=== PATIENT | female | born 1955 | race Caucasian/White ===

== ENCOUNTER → 2017-10-25 | Outpatient (CLI) | payer BC ==
[~2017-10-25] VITALS: Ht 175.3 cm; Wt 93.6 kg
[~2017-10-25] MED LIST: ESTRACE1 M1 PO; PROAIR HFA0.09 MG/AC IH
[2017-10-25 17:07] LABS: EOS # 0.2 (0.04-0.40); EOS % 3.2 % (1.0-5.0); HEMOGLOBIN 14.4 g/dL (12.5-16.0); LYMPH# 1.7 (1.50-4.00); MEAN CELL VOLUME 73 fl (78-100); MEAN CORPUSCULAR HGB CONC 32 g/dL (33-37); MEAN PLATELET VOLUME 10.3 fl (7.4-10.4); MONO # 0.6 (0.20-0.80); NEU # 3.5 (1.40-6.50); PLATELET COUNT 264 K/mm3 (130-400); RED BLOOD COUNT 6.18 M/mm3 (4.10-5.30); RED CELL DISTRIBUTION WIDTH 15.8 % (11.5-14.5)
[2017-10-25 17:18] VITALS: BP 148/84
[2017-10-25 17:22] LABS: MEAN CORPUSCULAR HEMOGLOBIN 23 pg (27-31)
[2017-10-25 17:32] LABS: ALBUMIN 4.5 g/dL (3.5-5.0); BUN/CREATININE RATIO 23.7 (6.0-26.0); CALCIUM 9.4 mg/dL (8.4-10.2); POTASSIUM 3.8 mmol/L (3.6-5.0); TOTAL BILIRUBIN 0.7 mg/dL (0.2-1.3); TOTAL PROTEIN 7.6 g/dL (6.3-8.2)
[2017-10-25 17:47] LABS: URINE APPEARANCE CLEAR; URINE BILIRUBIN NEGATIVE (NEGATIVE); URINE BLOOD NEGATIVE (NEGATIVE); URINE COLOR YELLOW; URINE GLUCOSE NEGATIVE (NEGATIVE); URINE KETONE NEGATIVE (NEGATIVE); URINE LEUKOCYTE ESTERASE NEGATIVE (NEGATIVE); URINE NITRATE NEGATIVE (NEGATIVE); URINE PROTEIN(semi-quant) NEGATIVE (NEGATIVE); URINE UROBILINOGEN NORMAL (NORMAL); URINE WBC 0-1 /hpf (0-3)
== END ==
LOC: AMSURD 16:51
PROVIDERS: Internal Medicine
DX: Z01.818 Encounter for other preprocedural examination (principal); Z01.812 Encounter for preprocedural laboratory examination

== ENCOUNTER → 2018-07-24 | Outpatient (CLI) | payer BC ==
[2017-10-25 17:18] VITALS: BP 148/84
== END ==
LOC: LAB 19:03
DX: N30.00 Acute cystitis without hematuria (principal)

== ENCOUNTER → 2018-10-31 | Outpatient (CLI) | payer BC ==
[2017-10-25 17:18] VITALS: BP 148/84
[2018-10-31 08:52] LABS: EOS # 0.2 (0.04-0.40); EOS % 3.3 % (1.0-5.0); HEMATOCRIT 43.7 % (37.0-47.0); LYMPH# 1.4 (1.50-4.00); MEAN CELL VOLUME 73 fl (78-100); MEAN CORPUSCULAR HGB CONC 32 g/dL (33-37); MEAN PLATELET VOLUME 10.1 fl (7.4-10.4); MONO # 0.7 (0.20-0.80); PLATELET COUNT 279 K/mm3 (130-400); RED BLOOD COUNT 6.02 M/mm3 (4.10-5.30); RED CELL DISTRIBUTION WIDTH 15.9 % (11.5-14.5); WHITE BLOOD COUNT 6.3 K/mm3 (4.8-10.8)
[2018-10-31 09:06] LABS: ALBUMIN 4.5 g/dL (3.5-5.0); CALCIUM 9.5 mg/dL (8.4-10.2); POTASSIUM 4.1 mmol/L (3.6-5.0); TOTAL BILIRUBIN 0.6 mg/dL (0.2-1.3); TOTAL PROTEIN 7.2 g/dL (6.3-8.2)
[2018-10-31 09:59] LABS: URINE APPEARANCE CLEAR; URINE BILIRUBIN NEGATIVE (NEGATIVE); URINE BLOOD NEGATIVE (NEGATIVE); URINE COLOR YELLOW; URINE GLUCOSE NEGATIVE (NEGATIVE); URINE KETONE NEGATIVE (NEGATIVE); URINE LEUKOCYTE ESTERASE NEGATIVE (NEGATIVE); URINE MUCUS PRESENT (NOT PRESENT); URINE NITRATE NEGATIVE (NEGATIVE); URINE PROTEIN(semi-quant) TRACE mg/dL (NEGATIVE); URINE UROBILINOGEN NORMAL (NORMAL)
[2018-10-31 10:00] LABS: MEAN CORPUSCULAR HEMOGLOBIN 23 pg (27-31)
[2018-10-31 12:51] LABS: ERYTHROCYTE SEDIMENTATION RATE 12 mm/hr (0-30)
== END ==
LOC: LAB 08:41
PROVIDERS: Internal Medicine
DX: Z12.11 Encounter for screening for malignant neoplasm of colon (principal); Z00.00 Encounter for general adult medical examination without abnormal findings

== ENCOUNTER → 2018-11-12 | Outpatient (CLI) | payer BC ==
[2017-10-25 17:18] VITALS: BP 148/84
[2018-11-12 09:25] LABS: URINE APPEARANCE CLEAR; URINE BILIRUBIN NEGATIVE (NEGATIVE); URINE BLOOD NEGATIVE (NEGATIVE); URINE COLOR YELLOW; URINE GLUCOSE NEGATIVE (NEGATIVE); URINE KETONE NEGATIVE (NEGATIVE); URINE LEUKOCYTE ESTERASE NEGATIVE (NEGATIVE); URINE MUCUS PRESENT (NOT PRESENT); URINE NITRATE NEGATIVE (NEGATIVE); URINE PROTEIN(semi-quant) TRACE mg/dL (NEGATIVE); URINE UROBILINOGEN NORMAL (NORMAL)
== END ==
LOC: LAB 08:06
PROVIDERS: Internal Medicine
DX: N30.00 Acute cystitis without hematuria (principal)

== ENCOUNTER → 2019-11-02 | Outpatient (CLI) | payer BC ==
[2017-10-25 17:18] VITALS: BP 148/84
[2019-11-02 09:46] LABS: EOS # 0.4 (0.04-0.40); EOS % 6.3 % (1.0-5.0); HEMATOCRIT 43.5 % (37.0-47.0); HEMOGLOBIN 13.6 g/dL (12.5-16.0); LYMPH# 1.3 (1.50-4.00); MEAN CELL VOLUME 73 fl (78-100); MEAN CORPUSCULAR HGB CONC 31 g/dL (33-37); MEAN PLATELET VOLUME 10.2 fl (7.4-10.4); MONO # 0.7 (0.20-0.80); NEU # 4.1 (1.40-6.50); PLATELET COUNT 229 K/mm3 (130-400); RED BLOOD COUNT 5.99 M/mm3 (4.10-5.30); RED CELL DISTRIBUTION WIDTH 16.6 % (11.5-14.5); WHITE BLOOD COUNT 6.6 K/mm3 (4.8-10.8)
[2019-11-02 09:52] LABS: MEAN CORPUSCULAR HEMOGLOBIN 23 pg (27-31)
[2019-11-02 10:02] LABS: POTASSIUM 3.9 mmol/L (3.5-5.1)
[2019-11-02 10:04] LABS: CALCIUM 9.5 mg/dL (8.3-10.5)
[2019-11-02 10:05] LABS: TOTAL PROTEIN 6.8 g/dL (6.2-8.1)
[2019-11-02 10:07] LABS: TOTAL BILIRUBIN 0.5 mg/dL (0.2-1.2)
[2019-11-02 10:49] LABS: ERYTHROCYTE SEDIMENTATION RATE 16 mm/hr (0-30)
== END ==
LOC: LAB 09:21
PROVIDERS: Internal Medicine
DX: Z00.00 Encounter for general adult medical examination without abnormal findings (principal); Z12.11 Encounter for screening for malignant neoplasm of colon

== ENCOUNTER → 2019-11-13 | Outpatient (CLI) | payer BC ==
[2017-10-25 17:18] VITALS: BP 148/84
== END ==
LOC: RAD 07:52
DX: R05 Cough (principal)

== ENCOUNTER → 2020-08-23 | Outpatient (CLI) | payer BC ==
[2017-10-25 17:18] VITALS: BP 148/84
== END ==
LOC: RAD 07:26
DX: R10.84 Generalized abdominal pain (principal)

== ENCOUNTER → 2020-09-19 | Outpatient (CLI) | payer BC ==
[2017-10-25 17:18] VITALS: BP 148/84
[2020-09-19 17:40] LABS: EOS # 0.2 (0.04-0.40); EOS % 3.7 % (1.0-5.0); HEMATOCRIT 44.1 % (37.0-47.0); LYMPH# 1.7 (1.50-4.00); MEAN CELL VOLUME 73 fl (78-100); MEAN CORPUSCULAR HGB CONC 32 g/dL (33-37); MEAN PLATELET VOLUME 11.1 fl (7.4-10.4); MONO # 0.6 (0.20-0.80); NEU # 3.4 (1.40-6.50); PLATELET COUNT 254 K/mm3 (130-400); RED BLOOD COUNT 6.03 M/mm3 (4.10-5.30); RED CELL DISTRIBUTION WIDTH 15.9 % (11.5-14.5)
[2020-09-19 17:43] LABS: POTASSIUM 3.8 mmol/L (3.5-5.1)
[2020-09-19 17:44] LABS: PROTHROMBIN TIME 9.9 SECONDS (9.0-12.0)
[2020-09-19 17:45] LABS: TOTAL PROTEIN 7.1 g/dL (6.2-8.1)
[2020-09-19 17:47] LABS: TOTAL BILIRUBIN 0.3 mg/dL (0.2-1.2)
[2020-09-19 17:52] LABS: MAGNESIUM 2.08 mg/dL (1.60-2.60)
[2020-09-19 17:59] LABS: URINE APPEARANCE CLOUDY; URINE BILIRUBIN NEGATIVE (NEGATIVE); URINE COLOR DK YELLOW; URINE GLUCOSE NEGATIVE (NEGATIVE); URINE KETONE NEGATIVE (NEGATIVE); URINE NITRATE NEGATIVE (NEGATIVE); URINE PROTEIN(semi-quant) TRACE mg/dL (NEGATIVE); URINE UROBILINOGEN NORMAL (NORMAL)
[2020-09-19 18:00] LABS: URINE BLOOD NEGATIVE (NEGATIVE); URINE LEUKOCYTE ESTERASE 2+ (NEGATIVE)
[2020-09-19 18:01] LABS: URINE MUCUS PRESENT (NOT PRESENT)
[2020-09-19 18:02] LABS: MEAN CORPUSCULAR HEMOGLOBIN 23 pg (27-31)
== END ==
LOC: AMSURD 16:52
PROVIDERS: Internal Medicine
DX: Z01.818 Encounter for other preprocedural examination (principal); M17.0 Bilateral primary osteoarthritis of knee

== ENCOUNTER → 2020-09-23 | Outpatient (CLI) | payer BC ==
[2017-10-25 17:18] VITALS: BP 148/84
== END ==
LOC: PT 13:00
DX: Z96.651 Presence of right artificial knee joint (principal); Z99.89 Dependence on other enabling machines and devices

== ENCOUNTER → 2020-09-23 | Outpatient (CLI) | payer BC ==
[2017-10-25 17:18] VITALS: BP 148/84
[2020-09-23 15:19] LABS: URINE APPEARANCE CLEAR; URINE BILIRUBIN NEGATIVE (NEGATIVE); URINE BLOOD NEGATIVE (NEGATIVE); URINE COLOR YELLOW; URINE GLUCOSE NEGATIVE (NEGATIVE); URINE KETONE NEGATIVE (NEGATIVE); URINE LEUKOCYTE ESTERASE NEGATIVE (NEGATIVE); URINE NITRATE NEGATIVE (NEGATIVE); URINE PROTEIN(semi-quant) TRACE mg/dL (NEGATIVE); URINE UROBILINOGEN NORMAL (NORMAL)
== END ==
LOC: LAB 14:04
PROVIDERS: Internal Medicine
DX: N30.00 Acute cystitis without hematuria (principal)

== ENCOUNTER → 2020-09-28 | Outpatient (CLI) | payer BC ==
[2017-10-25 17:18] VITALS: BP 148/84
== END ==
LOC: LAB 15:12
DX: Z01.818 Encounter for other preprocedural examination (principal)

== ENCOUNTER 2020-11-17 11:00 | Outpatient (RCR) | payer BC ==
[2017-10-25 17:18] VITALS: BP 148/84
== END 2020-11-28 | disposition home or self-care (01) ==
LOC: PT
DX: Z96.641 Presence of right artificial hip joint (principal)

== ENCOUNTER → 2021-09-29 | Outpatient (CLI) | payer BC ==
[2021-09-29 16:50] LABS: BASO # 0.06 K/mm3 (0.02-0.10); EOS # 0.23 K/mm3 (0.04-0.40); EOS % 3.9 % (1.0-5.0); HEMOGLOBIN 13.6 g/dL (12.5-16.0); LYMPH# 1.44 K/mm3 (1.50-4.00); MEAN CELL VOLUME 76 fl (78-100); MEAN CORPUSCULAR HEMOGLOBIN 23 pg (27-31); MEAN CORPUSCULAR HGB CONC 31 g/dL (33-37); MEAN PLATELET VOLUME 10.9 fl (7.4-10.4); MONO # 0.62 K/mm3 (0.20-0.80); NEU # 3.56 K/mm3 (1.40-6.50); PLATELET COUNT 247 K/mm3 (130-400); RED BLOOD COUNT 5.81 M/mm3 (4.10-5.30); WHITE BLOOD COUNT 5.9 K/mm3 (4.8-10.8)
[2021-09-29 16:59] LABS: POTASSIUM 3.8 mmol/L (3.5-5.1)
[2021-09-29 17:00] LABS: ALBUMIN 4.2 g/dL (3.4-4.8)
[2021-09-29 17:01] LABS: CALCIUM 10.3 mg/dL (8.3-10.5)
[2021-09-29 17:02] LABS: TOTAL PROTEIN 7.2 g/dL (6.2-8.1)
[2021-09-29 17:04] LABS: TOTAL BILIRUBIN 0.4 mg/dL (0.2-1.2)
[2021-09-29 18:36] LABS: ERYTHROCYTE SEDIMENTATION RATE 0 mm/hr (0-30)
== END ==
LOC: LAB 16:33
PROVIDERS: Internal Medicine
DX: Z00.00 Encounter for general adult medical examination without abnormal findings (principal)